=== PATIENT | male | born 1975 | race Caucasian/White ===

== ENCOUNTER 2017-12-18 12:49 | Emergency (ER) | payer MEDICAID ==
[~2017-12-18] VITALS: Ht 180.3 cm; Wt 75.0 kg
[2017-12-18 13:08] VITALS: BP 143/102
== END 2017-12-18 14:53 | disposition home or self-care (01) ==
LOC: ER 13:34
DX: S60.459A Superficial foreign body of unspecified finger, initial encounter (principal); I10 Essential (primary) hypertension; F17.200 Nicotine dependence, unspecified, uncomplicated; X58.XXXA Exposure to other specified factors, initial encounter; Y93.89 Activity, other specified; Y92.89 Other specified places as the place of occurrence of the external cause; Y99.8 Other external cause status
CPT/HCPCS: 99281